=== PATIENT | female | born 1950 | race Two or more races ===

== ENCOUNTER 2019-06-27 18:13 | Emergency (ER) | payer MEDICAID, OTHER ==
[~2019-06-27] VITALS: Ht 165.1 cm; Wt 65.8 kg
--- NOTE | 2019-06-27 18:40 | NUR ---
ED Nurse Note:pt. was BIBA from SNF with respiratory distress, pt has tracheostory and ventilator dependant, has GT, non verbal, blood and blood culture sent to labs and given IV fluids
--- NOTE | 2019-06-27 18:41 | NUR ---
RESPIRATORY NOTE: PT RECIEVED IN ER FROM [facility] FOR RESPIRATORY DISTRESS AND PLACED ON VENT. AC12 Vt650 50% +5, PT HAS A PORTEX 8 CUFFED, ABG ORDERED WILL CONTINUE TO MONITOR THE PT.
[2019-06-27 18:49] LABS: HEMATOCRIT 32.8 % (37.0-47.0); HEMOGLOBIN 10.7 G/DL (12.0-16.0); MEAN CORPUSCULAR VOLUME 100 FL (80-99); PLATELET COUNT 448 K/UL (150-450); RED BLOOD COUNT 3.28 M/UL (4.20-5.40); RED CELL DISTRIBUTION WIDTH 17.3 % (11.6-14.8)
[2019-06-27 18:53] LABS: WHITE BLOOD COUNT 23.2 K/UL (4.8-10.8)
[2019-06-27 19:05] VITALS: BP 95/30
--- NOTE | 2019-06-27 19:12 | NUR ---
HAND-OFF: Report given to Angle.
--- NOTE | 2019-06-27 19:15 | NUR ---
ED Nurse Note: pt is not alert and oriented.. pt is endotracheal ventilator dependent. pt skin is cool to touch with +3 pitting edema. pt upper extremeties fixed in extensor position.
[2019-06-27 20:30] VITALS: BP 0/0
--- NOTE | 2019-06-27 20:30 | NUR ---
ED Nurse Note: expiration announced per ermd at 2029. CRN and ERMD at bedside with ultrasound and doppler for confirmation of expiration.
--- NOTE | 2019-06-27 20:45 | NUR ---
one legacy has been notified case#[id number]. CORONERS DECLINED . SINCE THERE IS A DR TO SIGN THE CERTIFICATE
[2019-06-27 21:08] LABS: ALANINE AMINOTRANSFERASE 219 U/L (12-78); ALBUMIN/GLOBULIN RATIO 0.2 (1.0-2.7); ALKALINE PHOSPHATASE 117 U/L (46-116); ANION GAP 18 mmol/L (5-15); ASPARTATE AMINO TRANSFERASE 516 U/L (15-37); BILIRUBIN,TOTAL 0.4 MG/DL (0.2-1.0); BLOOD UREA NITROGEN 30 mg/dL (7-18); CHLORIDE 100 MMOL/L (98-107); CREATINE KINASE 64 U/L (26-308); POTASSIUM 4.6 MMOL/L (3.5-5.1); SODIUM 124 MMOL/L (136-145)
[2019-06-27 21:18] LABS: CARBON DIOXIDE 6 MMOL/L (21-32)
[2019-06-27 21:20] LABS: CALCIUM 4.9 MG/DL (8.5-10.1); CKMB 0.4 NG/ML (0.0-3.6)
[2019-06-27 21:21] LABS: ALBUMIN 2.8 G/DL (3.4-5.0)
--- NOTE | 2019-06-27 22:09 | Emergency Room Report ---
History of Present Illness General Chief Complaint: Dyspnea/Respdistress Source: Medical Record Present Illness HPI 68-year-old female presents ED for evaluation. [facility]. Episode of desaturation. Patient is trach/vent. On ventilator. Nonverbal at baseline. DNR. unable to provide any additional history at this time. No other aggravating or relieving factors. Denies any other associated symptoms Allergies: Coded Allergies: AMOXICILLIN (Verified Allergy, Mild, 06/27/19) PENICILLINS (Unverified Allergy, Unknown, 06/27/19) Patient History Past Medical History: DM, HTN Past Surgical History: none Pertinent Family History: none Social History: Denies: smoking, alcohol use, drug use Last Menstrual Period: na Now: No Immunizations: UTD Reviewed Nursing Documentation: PMH: Agreed; PSxH: Agreed Nursing Documentation-PMH Past Medical History: No History, Except For Hx Hypertension: Yes Hx Diabetes: Yes Review of Systems All Other Systems: limited Physical Exam Vital Signs Date Time Temp Pulse Resp B/P (MAP) Pulse Ox O2 Delivery O2 Flow Rate FiO2 06/27/19 18:09 97.5 116 20 129/90 (103) 98 Ambu-Bag 15.0 06/27/19 18:39 50 Sp02 EP Interpretation: reviewed, normal General Appearance: other - nonverbal Head: normocephalic Eyes: bilateral eye normal inspection, bilateral eye PERRL ENT: normal ENT inspection Neck: tracheotomy Respiratory: crackles Cardiovascular #1: tachycardia Gastrointestinal: normal inspection Rectal: deferred Genitourinary: no CVA tenderness Musculoskeletal: back normal Neurologic: other - nonverbal Psychiatric: other - nonverbal Skin: other - see nursing notes Lymphatic: normal inspection Procedures Critical Care Time Critical Care Time i. I feel this is a highly complex case requiring extensive working including EKG/Rhythm strip, Xray/CT/US, Blood/urine lab work, repeat exams while in ED, and administration of strong opiates/narcotics for pain control, admission to hospital or close patient follow up. Total time: 30 min bedside evaluation and treatment excludes procedures (EKG). Reason for critical care: hypoxia, severe sepsis, DKA Possible complications: hypotension, hypertension, UT, shock, arrhythmias, metabolic acidosis, end organ damage, respiratory failure. Interventions: Labs, EKG, chest x-ray, antibiotics, evaluation with ultrasound Course: Resenting with episode of respiratory distress. Trach vent. DNR. Chest x-ray shows effusion/infiltrate. Significant leukocytosis. Chemistry still pending. Patient lost pulse. Bedside ultrasound shows no cardiac activity. Chemistry comes back showing significant acidosis with glucose greater than 1200 with lactic 7.9. Consultations: nursing staff, EMS, family Performed by: Dr Paz Tolerated well condition = j. because of unstable vital signs this patient had a condition that could potentially threaten life or limb. I feel this is a critical patient who required my full attention while patient was considered critical. Total Critical Care Time excluding procedures was greater than 35 minutes Medical Decision Making Diagnostic Impression: Primary Impression: Respiratory distress Additional Impressions: Pneumonia Qualified Codes: J18.1 - Lobar pneumonia, unspecified organism Severe sepsis DKA (diabetic ketoacidoses) Qualified Codes: E13.10 - Other specified diabetes mellitus with ketoacidosis without coma ER Course Hospital Course 68-year-old female presents with respiratory distress Differential diagnoses include: Pneumonia, UTI, sepsis, dehydration, UT/ unstable angina Clinical course Patient placed on stretcher. On awake overnight monitor with afib with RVR. After initial history and physical, I ordered labs, IV fluids, EKG, chest x-ray, blood cultures, UA. Chest x-ray shows significant effusion, pneumonia broad spectrum antibiotics given. Tachycardia resolving after IV fluids. Patient lost pulse. Patient is DNR. bedside sono shows no cardiac activity. Dr Pendleton made aware patient Labs - marked leukocytosis, hb/hct stable, AG high, bicarb very low, glucose > 1200 I feel this is a highly complex case requiring extensive working including EKG/ Rhythm strip, Xray/CT/US, Blood/urine lab work, repeat exams while in ED, and administration of strong opiates/narcotics for pain control, admission to hospital or close patient follow up. Diagnosis - respiratory distress, pneumonia, severe sepsis, DKA patient Labs Test 06/27/19 18:30 06/27/19 20:10 White Blood Count 23.2 K/UL (4.8-10.8) Red Blood Count 3.28 M/UL (4.20-5.40) Hemoglobin 10.7 G/DL (12.0-16.0) Hematocrit 32.8 % (37.0-47.0) Mean Corpuscular Volume 100 FL (80-99) Mean Corpuscular Hemoglobin 32.7 PG (27.0-31.0) Mean Corpuscular Hemoglobin Concent 32.6 G/DL (32.0-36.0) Red Cell Distribution Width 17.3 % (11.6-14.8) Platelet Count 448 K/UL (150-450) Mean Platelet Volume 5.7 FL (6.5-10.1) Neutrophils (%) (Auto) % (45.0-75.0) Lymphocytes (%) (Auto) % (20.0-45.0) Monocytes (%) (Auto) % (1.0-10.0) Eosinophils (%) (Auto) % (0.0-3.0) Basophils (%) (Auto) % (0.0-2.0) Differential Total Cells Counted 100 Neutrophils % (Manual) 85 % (45-75) Lymphocytes % (Manual) 6 % (20-45) Monocytes % (Manual) 3 % (1-10) Eosinophils % (Manual) 0 % (0-3) Basophils % (Manual) 0 % (0-2) Metamyelocytes % 1 % (0-0) Myelocytes % 1 % (0-0) Band Neutrophils 4 % (0-8) Nucleated Red Blood Cells 1 /100 WBC Platelet Estimate Adequate Platelet Morphology Normal Polychromasia 1+ Anisocytosis 1+ Macrocytosis 2+ Sodium Level 124 MMOL/L (136-145) Potassium Level 4.6 MMOL/L (3.5-5.1) Chloride Level 100 MMOL/L (98-107) Carbon Dioxide Level 6 MMOL/L (21-32) Anion Gap 18 mmol/L (5-15) Blood Urea Nitrogen 30 mg/dL (7-18) Creatinine 1.0 MG/DL (0.55-1.30) Estimat Glomerular Filtration Rate 55.1 mL/min (>60) Glucose Level 1230 MG/DL (74-106) Lactic Acid Level 7.90 mmol/L (0.4-2.0) Calcium Level 4.9 MG/DL (8.5-10.1) Total Bilirubin 0.4 MG/DL (0.2-1.0) Aspartate Amino Transf (AST/SGOT) 516 U/L (15-37) Alanine Aminotransferase (ALT/SGPT) 219 U/L (12-78) Alkaline Phosphatase 117 U/L (46-116) Total Creatine Kinase 64 U/L (26-308) Creatine Kinase MB 0.4 NG/ML (0.0-3.6) Creatine Kinase MB Relative Index 0.6 Troponin I 0.135 ng/mL (0.000-0.056) Pro-B-Type Natriuretic Peptide 9256 pg/mL (0-125) Total Protein 3.5 G/DL (6.4-8.2) Albumin 2.8 G/DL (3.4-5.0) Globulin 2.8 g/dL Albumin/Globulin Ratio 0.2 (1.0-2.7) EKG Diagnostic Results Rate: tachycardiac Rhythm: other - afib with RVR ST Segments: no acute changes ASA given to the pt in ED: No Rhythm Strip Diag. Results EP Interpretation: yes Rhythm: no PVC's, no ectopy Chest X-Ray Diagnostic Results Chest X-Ray Diagnostic Results : Chest X-Ray Ordered: Yes # of Views/Limited/Complete: 1 View Indication: Shortness of Breath EP Interpretation: Yes Interpretation: no pneumothorax, no acute cardiopulmonary disease - bilateral effusion Impression: Other - pneumonia Electronically Signed by: Electronically signed by Fito Paz MD Last Vital Signs Date Time Temp Pulse Resp B/P (MAP) Pulse Ox O2 Delivery O2 Flow Rate FiO2 06/27/19 20:30 97.1 0 0 0/0 0 Mechanical Ventilator 06/27/19 19:09 15.0 50 Status: worsened Disposition: Condition: Referrals: Wang Pendleton MD (PCP) Fito Paz MD Jun 27, 2019 22:09
--- NOTE | 2019-06-28 11:08 | Diagnostic Imaging Report ---
Indication: Shortness of breath Technique: One view of the chest Comparison: 11/06/2008 Findings: Interim development of large right pleural effusion. Lobulated appearance of the pleural fluid on the right raises possibility of loculation. Opacity seen outlining a medial apical lucency on the right could indicate a small apical pneumothorax although this is doubtful. There is also a smaller left pleural effusion. The heart is enlarged. There is a tracheostomy. There is bilateral interstitial edema. Impression: Bilateral right greater than left pleural effusions, possibly loculated on the right. Bilateral interstitial edema Doubt but cannot exclude tiny right apical pneumothorax.
--- NOTE | 2019-06-28 18:52 | Cardiology Report ---
APPROVED REPORT EKG Measurement Heart [id number] Atrial fibrillation with rapid ventricular response Low voltage QRS Cannot rule out Anterior infarct, age undetermined Abnormal ECG
== END 2019-06-27 23:00 | disposition expired ==
LOC: EDBD 18:13 → EMR 18:50
DX: A41.9 Sepsis, unspecified organism (principal); J18.1 Lobar pneumonia, unspecified organism; R65.20 Severe sepsis without septic shock; E11.10 Type 2 diabetes mellitus with ketoacidosis without coma; Z93.0 Tracheostomy status; I10 Essential (primary) hypertension; Z88.0 Allergy status to penicillin; Z88.1 Allergy status to other antibiotic agents; Z66 Do not resuscitate
CPT/HCPCS: 36415; 71045; 80053; 82550; 82553; 83605; 83880; 84484; 85007; 85025; 87040; 93005; 94002; 94664; 96361; 96365; J1956; Z7502; 99291